=== PATIENT | female | born 1960 | race Two or more races ===

== ENCOUNTER 2021-05-13 00:29 | Inpatient (IN) | payer SELFPAY ==
[~2021-05-13] VITALS: Ht 162.6 cm; Wt 226.8 kg
[2021-05-13] MEDS ORDERED: KETOROLAC 60 MG/2 ML VIAL. IM ONE (01:15)
--- NOTE | 2021-05-13 01:15 | ED.ADGEN ---
General Adult HPI: HPI: Patient is a 60 year old female coming in via EMS for chronic left hip pain. History of bilateral via client partner because patient is Polish-speaking. Patient was discharged the day prior from [facility] after a 3-day stay. Patient was there for the same complaint. History is difficult because patient is elusive with answers and not straightforward. He states that originally she was supposed to go to a skilled rehab but then she decided not to. Has not followed up with her primary care since. Patient denies any new injury or change in her pain. Patient does not get out of bed at home except for transition to a chair that her uses to get her to the restroom. Patient is otherwise bedbound. When asked what patient is hoping for from this ER visit she says she "wants the pain taken away". Was prescribed meloxicam by her primary care provider, and is been taking Tylenol at home Review of Systems: Review of Systems: All other systems within normal limits except for as noted in the HPI Current Medications: Current Medications Medications (Trade) Dose Ordered Sig/Maria E Start Time Stop Time Status Last Admin Dose Admin Ketorolac Tromethamine (Toradol Im) 60 mg 1X ONCE 05/13/21 01:15 05/13/21 01:36 DC 05/13/21 01:32 60 MG Allergies: Allergies: Allergies Coded Allergies Type Severity Reaction Last Updated Verified No Known Drug Allergies 05/13/21 No Physical Exam: PE: Constitutional: Well developed, well nourished, morbidly. [] HENT: Normocephalic, atraumatic, bilateral external ears normal, nose normal. [] Eyes: PERRLA, conjunctiva normal, no discharge. [] Neck: No rigidity, supple, no stridor. [] Cardiovascular: Regular rate and rhythm, brisk cap refill [] Lungs & Thorax: Non labored symmetric respirations, no tachypnea or respiratory distress [] Abdomen: Soft, nondistended. Skin: Warm, dry, no erythema, no rash. [] Back: Unremarkable Extremities: No deformities, range of motion grossly intact, no lower extremity edema. No deformity of hip, pain with palpation. Exam limited by patient's morbid obesity [] Neurologic: Alert and oriented X 3, no focal deficits noted. [] Psychologic: Affect normal, judgement normal, mood normal. [] Current Patient Data: Vital Signs: Vital Signs Date Time Temp Pulse Resp B/P (MAP) Pulse Ox O2 Delivery O2 Flow Rate FiO2 05/13/21 02:30 94 18 167/87 (113) 91 Room Air 05/13/21 01:57 98.0 98.0 EKG: EKG: [] Heart Score: C/O Chest Pain: No Risk Factors: Risk Factors: DM, Current or recent (<one month) smoker, HTN, HLP, family history of CAD, obesity. Risk Scores: Score 0 - 3: 2.5% MACE over next 6 weeks - Discharge Home Score 4 - 6: 20.3% MACE over next 6 weeks - Admit for Clinical Observation Score 7 - 10: 72.7% MACE over next 6 weeks - Early Invasive Strategies Radiology/Procedures: Radiology/Procedures: [facility] [address] [place] [address] IMAGING REPORT Signed PATIENT: MANUELA COVINGTON ACCOUNT: [id number] : 1960 LOCATION: ER AGE: 60 SEX: F EXAM STATUS: REG ER ORD. PHYSICIAN: ARELY TORRES MD REASON: left hip pain PROCEDURE: PELVIS XR PELVIS 1-2V History: Reason: left hip pain / Spl. Instructions: / History: Technique: AP view the pelvis. Comparison: None. Findings: Degraded evaluation due to patient body habitus. No dislocation on AP view. No definite fracture. Moderate bilateral hip DJD. Impression: 1. Degraded evaluation. No definite acute osseous abnormality. If persistent clinical concern, recommend follow-up. 2. Moderate bilateral hip DJD, right greater than left. Electronically signed by: Jonathan Campa DO (05/13/2021 1:41 AM) [facility] DICTATED and SIGNED BY: JONATHAN CAMPA DO DATE: 05/13/21 [id number] [] Course & Med Decision Making: Course & Med Decision Making Discussed with patient we can admit for physical therapy and pain management will getting physical therapy. And that patient would not just get pain medications to go home with due to the risks of severe constipation due to patient being bedbound. Discussed patient she needs to get mobile to help her get around and care for herself. Patient agrees to plan Dragon Disclaimer: Dragon Disclaimer: This electronic medical record was generated, in whole or in part, using a voice recognition dictation system. Departure Departure Impression: Primary Impression: Morbid obesity Additional Impression: Left hip pain Disposition: 09 ADMITTED INPATIENT Admitting Physician: PAMELA Condition: STABLE Referrals: UNKNOWN PCP NAME (PCP) Problem Qualifiers ARELY TORRES MD May 13, 2021 01:15
--- NOTE | 2021-05-13 01:43 | RAD ---
XR PELVIS 1-2V History: Reason: left hip pain / Spl. Instructions: / History: Technique: AP view the pelvis. Comparison: None. Findings: Degraded evaluation due to patient body habitus. No dislocation on AP view. No definite fracture. Mod erate bilateral hip DJD. Impression: 1. Degraded evaluation. No definite acute osseous abnormality. If persistent clinical concern, recom mend follow-up. 2. Moderate bilateral hip DJD, right greater than left. Electronically signed by: Jonathan Chapman DO (05/13/2021 1:41 AM) [facility]
[2021-05-13] MEDS ORDERED: ONDANSETRON PF 4 MG/2 ML VIAL. IVP PRN (02:45)
[2021-05-13] MEDS ORDERED: ACETAMINOPHEN 325 MG TABLET. PO PRN (02:45)
[2021-05-13] MEDS ORDERED: HYDROcodone/APAP 5/325MG 1 TAB TABLET PO ONE (03:00)
[2021-05-13 06:30] LABS: ALBUMIN 2.4 g/dL (3.4-5.0); ALBUMIN/GLOBULIN RATIO 0.5 (1.0-1.7); CALCIUM 9.7 mg/dL (8.5-10.1); CREATININE 0.8 mg/dL (0.6-1.0); GFR 73.2; POTASSIUM 5.5 mmol/L (3.5-5.1); TOTAL BILIRUBIN 0.4 mg/dL (0.2-1.0); TOTAL PROTEIN 7.7 g/dL (6.4-8.2)
[2021-05-13 06:43] LABS: BASO # 0.1 x10^3/uL (0.0-0.2); BASO % 1 % (0-3); EOS % 0 % (0-3); HEMATOCRIT 37.5 % (36.0-47.0); HEMOGLOBIN 11.9 g/dL (12.0-15.5); LYMPH % 8 % (24-48); MEAN CORPUSCULAR HEMOGLOBIN 29 pg (25-35); MEAN CORPUSCULAR HGB CONC 32 g/dL (31-37); MEAN CORPUSCULAR VOLUME 89 fL (79-100); MONO # 0.8 x10^3/uL (0.0-1.1); MONO % 7 % (0-9); NEUT # 9.9 x10^3/uL (1.8-7.7); NEUT % 84 % (31-73); PLATELET COUNT 360 x10^3/uL (140-400); RED CELL DISTRIBUTION WIDTH 15.1 % (11.5-14.5); WHITE BLOOD COUNT 11.9 x10^3/uL (4.0-11.0)
[2021-05-13 07:05] VITALS: BP 148/111
[2021-05-13] MEDS ORDERED: KETOROLAC 30 MG/ML VIAL. IVP PRN (07:15)
--- NOTE | 2021-05-13 07:23 | PDOC1 ---
History and Physical Date of Admission Date of Admission DATE: 05/13/21 TIME: 07:14 Identification/Chief Complaint Chief Complaint Hip pain History of Present Illness History of Present Illness Ms Leos is a 60 year old female w/ PMHx HTN, DM2, super-super obesity (BMI >80) who is coming in via EMS for acute worsening of chronic left hip pain. 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 She was discharged 05/12/21 from [facility] after a 3-day stay. Patient was there for bilateral hip pain, diagnosed with AVN of right hip. Patient denies any new injury or change in her pain. Patient does not get out of bed at home except for transition to a chair that her uses to get her to the restroom. Patient is otherwise bedbound for almost the past 6 years since 2014. She lives with and daughter but family is gone for extended periods at home and patient is unable to transition on her own and unable to complete ADLs independently. He has previously been seen at [facility] and most recently [facility] and was actually discharged 05/12/2021. Labs WBC 11.9, Hb 11.9, platelets 360, NA 131, K5.5, BUN 11, CR 0.8, glucose 120, albumin 2.4, LFTs within normal laboratory limits otherwise Labs from recent hospital stay at [facility] with triglycerides 225 HDL 33 LDL 94 CRP 184.4, sed rate 68 vitamin D 25 hydroxy 14, K5.7, HbA1c 7.4, BASIL negative centromere antibody negative M[employer]ION COMMANDER negative Adames antibody negative dsDNA negative Sjogren's antibodies negative Jennie 1 scleroderma antibody negative hep C negative COVID-19 - 05/18/2021. Microalbumin creatinine ratio greater than 184. Pelvic radiograph with bilateral DJD right greater than left Admitted for further care, unable to care for self or manage pain at home. Past Medical History Cardiovascular: HTN Endocrine: Diabetes Past Surgical History Past Surgical History: No pertinent history Family History Family History: Diabetes, High Cholestrol, Hypertension Social History Smoke: No ALCOHOL: none Drugs: None Current Problem List Problem List Problems Medical Problems: (1) Left hip pain Status: Acute (2) Morbid obesity Status: Acute Current Medications Current Medications Current Medications Ketorolac Tromethamine (Toradol Im) 60 mg 1X ONCE IM Last administered on 05/13/21at 01:32; Start 05/13/21 at 01:15; Stop 05/13/21 at 01:36; Status DC Ondansetron HCl (Zofran) 4 mg PRN Q8HRS PRN IVP NAUSEA/VOMITING 1ST CHOICE; Start 05/13/21 at 02:45; Stop 05/14/21 at 02:44 Acetaminophen (Tylenol) 650 mg PRN Q4HRS PRN PO FEVER > 100.3'F; Start 05/13/21 at 02:45; Stop 05/14/21 at 02:44 Acetaminophen/ Hydrocodone Bitart (Lortab 5/325) 1 tab 1X ONCE PO Last administered on 05/13/21at 03:10; Start 05/13/21 at 03:00; Stop 05/13/21 at 03:01; Status DC Allergies Allergies: Coded Allergies: No Known Drug Allergies (Unverified , 05/13/21) ROS General: YES: Fatigue, Malaise, Appetite; No: Chills, Night Sweats, Other PSYCHOLOGICAL ROS: YES: Depression; No: Anxiety, Behavioral Disorder, Concentration difficultie, Decreased libido, Disorientation, Hallucinations, Hostility, Irritablity, Memory difficulties, Mood Swings, Obsessive thoughts, Physical abuse, Sexual abuse, Sleep disturbances, Suicidal ideation, Other Eyes: No Blurry vision, No Decreased vision, No Double vision, No Dry eyes, No Excessive tearing, No Eye Pain, No Itchy Eyes, No Loss of vision, No Photophobia, No Scotomata, No Uses contacts, No Uses glasses, No Other HEENT: No: Heacaches, Visual Changes, Hearing change, Nasal congestion, Nasal discharge, Oral lesions, Sinus pain, Sore Throat, Epistaxis, Sneezing, Snoring, Tinnitus, Vertigo, Vocal changes, Other ALLERGY AND IMMUNOLOGY: No: Hives, Insect Bite Sensitivity, Itchy/Watery Eyes, Nasal Congestion, Post Nasal Drip, Seasonal Allergies, Other Hematological and Lymphatic: No: Bleeding Problems, Blood Clots, Blood Transfusions, Brusing, Night Sweats, Pallor, Swollen Lymph Nodes, Other ENDOCRINE: No: Breast Changes, Galactorrhea, Hair Pattern Changes, Hot Flashes, Malaise/lethargy, Mood Swings, Palpitations, Polydipsia/polyuria, Skin Changes, Temperature Intolerance, Unexpected Weight Changes, Other Breast: No New/Changing Breast Lumps, No Nipple changes, No Nipple discharge, No Other Respiratory: No: Cough, Hemoptysis, Orthopnea, Pleuritic Pain, Shortness of breath, SOB with excertion, Sputum Changes, Stridor, Tachypnea, Wheezing, Other Cardiovascular: No Chest Pain, No Palpitations, No Orthopnea, No Paroxysmal Noc. Dyspnea, No Edema, No Lt Headedness, No Other Gastrointestinal: No Nausea, No Vomiting, No Abdominal Pain, No Diarrhea, No Constipation, No Melena, No Hematochezia, No Other Genitourinary: No Dysuria, No Frequency, No Incontinence, No Hematuria, No Retention, No Discharge, No Urgency, No Pain, No Flank Pain, No Other, No , No , No , No , No , No , No Musculoskeletal: Yes Joint Pain, Yes Joint Stiffness, Yes Muscle Pain, Yes Muscular Weakness; No Gait Disturbance, No Joint Swelling, No Pain In:, No Swelling In:, No Other Neurological: No Behavorial Changes, No Bowel/Bladder ControlChng, No Confusion, No Dizziness, No Gait Disturbance, No Headaches, No Impaired Coord/balance, No Memory Loss, No Numbness/Tingling, No Seizures, No Speech Problems, No Tremors, No Visual Changes, No Weakness, No Other Skin: Yes Rash; No Dry Skin, No Eczema, No Hair Changes, No Lumps, No Mole Changes, No Mottling, No Nail Changes, No Pruritus, No Skin Lesion Changes, No Other, No Acne Physical Exam General: Alert, Oriented X3, Cooperative, moderate distress HEENT: Atraumatic, PERRLA, EOMI, Mucous membr. moist/pink Lungs: Clear to auscultation, Normal air movement Heart: S1S2, RRR, no thrills, no rubs, no gallops, no murmurs Abdomen: Normal bowel sounds, Soft, No tenderness, No hepatosplenomegaly, No masses Extremities: No clubbing, No cyanosis, Normal pulses, Other Skin: Other (Left posterior thigh ulcer, sacral ulcer) Neuro: Normal tone, Sensation intact, Cranial nerves 3-12 NL, Reflexes 2+ Psych/Mental Status: Mental status NL, Mood NL Vitals Vitals Vital Signs Date Time Temp Pulse Resp B/P (MAP) Pulse Ox O2 Delivery O2 Flow Rate FiO2 05/13/21 07:05 98.1 94 20 148/111 (123) 95 Room Air 98.1 Labs Labs Laboratory Tests Test 05/13/21 03:05 White Blood Count 11.9 x10^3/uL (4.0-11.0) Red Blood Count 4.20 x10^6/uL (3.50-5.40) Hemoglobin 11.9 g/dL (12.0-15.5) Hematocrit 37.5 % (36.0-47.0) Mean Corpuscular Volume 89 fL (79-100) Mean Corpuscular Hemoglobin 29 pg (25-35) Mean Corpuscular Hemoglobin Concent 32 g/dL (31-37) Red Cell Distribution Width 15.1 % (11.5-14.5) Platelet Count 360 x10^3/uL (140-400) Neutrophils (%) (Auto) 84 % (31-73) Lymphocytes (%) (Auto) 8 % (24-48) Monocytes (%) (Auto) 7 % (0-9) Eosinophils (%) (Auto) 0 % (0-3) Basophils (%) (Auto) 1 % (0-3) Neutrophils # (Auto) 9.9 x10^3/uL (1.8-7.7) Lymphocytes # (Auto) 1.0 x10^3/uL (1.0-4.8) Monocytes # (Auto) 0.8 x10^3/uL (0.0-1.1) Eosinophils # (Auto) 0.0 x10^3/uL (0.0-0.7) Basophils # (Auto) 0.1 x10^3/uL (0.0-0.2) Sodium Level 131 mmol/L (136-145) Potassium Level 5.5 mmol/L (3.5-5.1) Chloride Level 97 mmol/L (98-107) Carbon Dioxide Level 24 mmol/L (21-32) Anion Gap 10 (6-14) Blood Urea Nitrogen 11 mg/dL (7-20) Creatinine 0.8 mg/dL (0.6-1.0) Estimated GFR (Cockcroft-Gault) 73.2 BUN/Creatinine Ratio 14 (6-20) Glucose Level 120 mg/dL (70-99) Calcium Level 9.7 mg/dL (8.5-10.1) Total Bilirubin 0.4 mg/dL (0.2-1.0) Aspartate Amino Transf (AST/SGOT) 14 U/L (15-37) Alanine Aminotransferase (ALT/SGPT) 25 U/L (14-59) Alkaline Phosphatase 81 U/L (46-116) Total Protein 7.7 g/dL (6.4-8.2) Albumin 2.4 g/dL (3.4-5.0) Albumin/Globulin Ratio 0.5 (1.0-1.7) Laboratory Tests Test 05/13/21 03:05 White Blood Count 11.9 x10^3/uL (4.0-11.0) Red Blood Count 4.20 x10^6/uL (3.50-5.40) Hemoglobin 11.9 g/dL (12.0-15.5) Hematocrit 37.5 % (36.0-47.0) Mean Corpuscular Volume 89 fL (79-100) Mean Corpuscular Hemoglobin 29 pg (25-35) Mean Corpuscular Hemoglobin Concent 32 g/dL (31-37) Red Cell Distribution Width 15.1 % (11.5-14.5) Platelet Count 360 x10^3/uL (140-400) Neutrophils (%) (Auto) 84 % (31-73) Lymphocytes (%) (Auto) 8 % (24-48) Monocytes (%) (Auto) 7 % (0-9) Eosinophils (%) (Auto) 0 % (0-3) Basophils (%) (Auto) 1 % (0-3) Neutrophils # (Auto) 9.9 x10^3/uL (1.8-7.7) Lymphocytes # (Auto) 1.0 x10^3/uL (1.0-4.8) Monocytes # (Auto) 0.8 x10^3/uL (0.0-1.1) Eosinophils # (Auto) 0.0 x10^3/uL (0.0-0.7) Basophils # (Auto) 0.1 x10^3/uL (0.0-0.2) Sodium Level 131 mmol/L (136-145) Potassium Level 5.5 mmol/L (3.5-5.1) Chloride Level 97 mmol/L (98-107) Carbon Dioxide Level 24 mmol/L (21-32) Anion Gap 10 (6-14) Blood Urea Nitrogen 11 mg/dL (7-20) Creatinine 0.8 mg/dL (0.6-1.0) Estimated GFR (Cockcroft-Gault) 73.2 BUN/Creatinine Ratio 14 (6-20) Glucose Level 120 mg/dL (70-99) Calcium Level 9.7 mg/dL (8.5-10.1) Total Bilirubin 0.4 mg/dL (0.2-1.0) Aspartate Amino Transf (AST/SGOT) 14 U/L (15-37) Alanine Aminotransferase (ALT/SGPT) 25 U/L (14-59) Alkaline Phosphatase 81 U/L (46-116) Total Protein 7.7 g/dL (6.4-8.2) Albumin 2.4 g/dL (3.4-5.0) Albumin/Globulin Ratio 0.5 (1.0-1.7) Images Images Pelvis radiograph: Degraded evaluation due to patient body habitus. No dislocation on AP view. No definite fracture. Moderate bilateral hip DJD. Impression: 1. Degraded evaluation. No definite acute osseous abnormality. If persistent clinical concern, recommend follow-up. 2. Moderate bilateral hip DJD, right greater than left. VTE Prophylaxis Ordered VTE Prophylaxis Devices: No VTE Pharmacological Prophylaxi: Yes Assessment/Plan Assessment/Plan A/P: Intractable left hip pain -had large work-up at [facility] recently for right hip pain. CRP and ESR elevated. D/w orthopedic surgery if this may be due to inflammatory arthritis Right hip AVN - non-ambulatory, no surgical options per recent [facility] stay Hyperkalemia - likely RTA from DM2, will give IV saline, insulin. Monitor trend Hyponatremia - likely hypovolemic from poor access to self care Hyperglycemia - DM2 - A1c 7.7. Added ARB and statin for diabetic nephropathy and cardiac secondary prevention Severe protein calorie malnutrition - Super super morbid obesity (BMI > 80) - high mortality and comorbidity risk Sacral decubitus ulcer - wound care, pressure reducing mattress Left posterior leg ulcer - wound care, pressure reducing mattress Right knee osteoarthritis - non-ambulatory, has moderate pain Left knee osteoarthritis - non-ambulatory, has moderate pain Hypertriglyceridemia - > 150, statin added, may benefit from fish oil HLD - not at goal given DM2 diagnosis, should be < 70mg/dL Vitamin D deficiency - Replace 5000 IU daily Bedbound status - realistic goals of therapy are establishing ADLs with OT and bed exercises with PT Failure to thrive in adult - overall goals of care should be established with family FEN - ADA diet PPX - lovenox FULL CODE Dispo - inpatient. Overall disposition is difficult given recurrent admissions and clearly difficulty with care at home and lack of self care. Surrogate decision-maker is Royal Vora telephone [phone] Justifications for Admission Other Justification VERENICE ZAMORA MD May 13, 2021 07:23
[2021-05-13] MEDS ORDERED: IV NORMAL SALINE 1000ML BAG 1,000 ML IV ONE (08:00)
[2021-05-13 11:22] VITALS: BP 180/68
[2021-05-13] MEDS: DICLOFENAC SODIUM 1% TOPICAL GEL 100GM TUBE. TP SCH ×2 (12:07→20:51)
[2021-05-13] MEDS ORDERED: DEXTROSE 50% 25 GM / 50ML DISP.SYRIN. IV PRN (14:30)
[2021-05-13] MEDS ORDERED: ZINC OXIDE 20% TOPICAL OINTMENT 28GM TUBE. TP PRN (15:00)
[2021-05-13] MEDS ORDERED: VITS A & D/LANOLIN TOPICAL OINTMENT 42GM TUBE. TP PRN (15:00)
[2021-05-13 15:12] VITALS: BP 149/74
--- NOTE | 2021-05-13 15:26 | HP ---
ADMIT DATE: 05/13/2021 REASON FOR CONSULTATION: Left hip pain. BRIEF HISTORY: The patient is a 60-year-old female who is nonambulatory and has been for years. According to the documentation, most of the history is coming from the documentation from treating physician here at the hospital as well as prior examination and admission into [facility] in the last couple days secondary to intractable pain. At this point, there is no significant change in her status since her dismissal from the previous hospital. Continued pain at this point, but not increased or decreased in severity. After reviewing all of the chart and understanding the patient's history, she was evaluated and appropriate treatment was given at that facility for avascular necrosis. Recommendation by the orthopedic department, there was noted to be a nonsurgical due to the patient's current medical status. Also, her current mobility status. Physical exam revealed there to be significant pain this is very limited due to the fact that any type of range of motion is painful at extremes. Although, log rolling does not significantly cause a lot of pain at this point. Neurovascular status is intact. An obvious atrophy of lower extremity musculature bilaterally at this point. IMPRESSION: Avascular necrosis, left hip. PLAN: At this time, I would certainly agree that she is nonambulatory and due to her medical status as well as the amount of obesity, the patient, I believe, is said to be nonambulatory for the remainder of her life. I do not believe that a surgical intervention at this point would necessarily control any of her pain. This would have to be locked prosthesis if that was even performed and I am not sure medically she could undergo that procedure. Therefore, conservative management is currently necessary with pain medications. That would be under the direction of her primary physician at this point. I would be more than glad to see her on an outpatient basis, but this would not change the findings as well as the treatment in the future. Thank you for allowing me to see the patient. BORIS FREITAS: Myranda TID: [id number]
[2021-05-13] MEDS: GABAPENTIN 100 MG CAPSULE. PO SCH ×2 (16:38→20:51)
[2021-05-13] MEDS: CHOLECALCIFEROL (VITAMIN D3) 5,000 UNIT CAPSULE PO SCH (16:38)
[2021-05-13] MEDS: traMADol 50 MG TABLET PO PRN (16:38)
[2021-05-13] MEDS: metFORMIN 500 MG TABLET PO SCH (16:38)
[2021-05-13] MEDS: DULoxetine HCL 30 MG CAPSULE.DR PO SCH (16:39)
[2021-05-13] MEDS: LOSARTAN POTASSIUM 50 MG TABLET. PO SCH (16:39)
[2021-05-13] MEDS: INSULIN LISPRO 300 UNITS/3 ML VIAL. SQ SCH (17:00)
[2021-05-13 19:15] VITALS: BP 122/61
[2021-05-13] MEDS ORDERED: PSYLLIUM HUSK (SUGAR FREE) 1 PKT PACKET PO SCH (21:00)
[2021-05-13] MEDS ORDERED: ATORVASTATIN CALCIUM 10 MG TABLET. PO SCH (21:00)
[2021-05-13 22:46] VITALS: BP 120/73
[2021-05-14 03:05] VITALS: BP 136/73
[2021-05-14 07:00] VITALS: BP 119/63
[2021-05-14] MEDS: INSULIN LISPRO 300 UNITS/3 ML VIAL. SQ SCH ×3 (08:00→17:00)
[2021-05-14 08:17] LABS: CALCIUM 8.9 mg/dL (8.5-10.1); CREATININE 0.6 mg/dL (0.6-1.0); POTASSIUM 4.4 mmol/L (3.5-5.1)
[2021-05-14] MEDS: DULoxetine HCL 30 MG CAPSULE.DR PO SCH (08:36)
[2021-05-14] MEDS: metFORMIN 500 MG TABLET PO SCH ×2 (08:36→17:57)
[2021-05-14] MEDS: CHOLECALCIFEROL (VITAMIN D3) 5,000 UNIT CAPSULE PO SCH (08:36)
[2021-05-14] MEDS: GABAPENTIN 100 MG CAPSULE. PO SCH ×2 (08:36→13:23)
[2021-05-14] MEDS: DICLOFENAC SODIUM 1% TOPICAL GEL 100GM TUBE. TP SCH (08:41)
[2021-05-14] MEDS: traMADol 50 MG TABLET PO PRN (08:45)
[2021-05-14] MEDS: LOSARTAN POTASSIUM 50 MG TABLET. PO SCH (09:00)
[2021-05-14 11:00] VITALS: BP 103/48
--- NOTE | 2021-05-14 12:20 | NUR ---
SW following. Discussed with RN, pt from home with spouse, room air, ada diet. Pt willing to private pay for home health per Lino Walsh ( director). SOFIA discussed with Corinna Cunningham RN - they can do some nathaniel home health with patient, and also send pt a bill and pt can pay what she can. Corinna Cunningham RN will meet with pt. RN notified and Dr. Vega notified. Med Assist following for self pay status. SOFIA will continue to follow. Addendum: 05/14/21 at 1635 by JAGRUTI BLACK Transportation arranged with [facility] for 1999. ASHLEY notified.
[2021-05-14] MEDS ORDERED: METF500T16 PO (12:57)
[2021-05-14] MEDS ORDERED: LISI2.5T12 PO (12:57)
[2021-05-14] MEDS ORDERED: TRAM50TA PO ×2 (12:57→14:46)
[2021-05-14] MEDS ORDERED: CHOL5000 PO (12:57)
[2021-05-14] MEDS ORDERED: DULO30CA2 PO (12:57)
--- NOTE | 2021-05-14 14:50 | SNU/HH DC ---
DISCHARGE WITH HOME HEALTH DISCHARGE INFORMATION: Discharge Date: May 14, 2021 Final Diagnosis: hip pain morbid obesity, BMI 86 unable to transfer Dm2 Problems Medical Problems: (1) Left hip pain Status: Acute (2) Morbid obesity Status: Acute Condition on Discharge: Stable CODE STATUS: Code Status: Full HOME HEALTH: Face to Face: I certify this patient is under my care and that I, had a face to face encounter that meets the physician face to face encounter requirements with this patient on 05/14 Medical Complications: DM [facility] For: Diabetic Care, Medication Management RN For Eval/Treatment: Yes Physical Therapy For: Evalulation/Treatment Occupational Therapy For: Evaluation/Treatment Pt Meets Homebound Status: Other: (cannot transfer) POST DISCHARGE ORDERS: DIET AFTER DISCHARGE: ADA TREATMENT/EQUIPMENT ORDERS: Adaptive Equipment Issued: Long handled sponge, Fisheries Manager CERTIFICATION STATEMENT: Certification Statement: Certification Statement: Based on the above finding, I certify that this patient is confined to the home and needs intermittent intermediate care, physical therapy and/or speech therapy, or continues to need occupational therapy.~ This patient is under my care, and I have initiated the establishment of the plan of care.~ This patient will be followed by myself or a community physician who will periodically review the plan of care. Home Meds Active Scripts Tramadol Hcl (TRAMADOL HCL) 50 Mg Tablet, 50 MG PO PRN BID PRN for PAIN, #24 TAB Prov:ROEL HAGEN MD 05/14/21 Lisinopril (LISINOPRIL) 2.5 Mg Tablet, 1 TAB PO DAILY for Dm2, #30 TAB Prov:ROEL HAGEN MD 05/14/21 Duloxetine Hcl (CYMBALTA) 30 Mg Capsule.dr, 30 MG PO DAILY for pain and mood, #30 CAP Prov:ROEL HAGEN MD 05/14/21 Metformin Hcl (METFORMIN HCL) 500 Mg Tablet, 500 MG PO BIDWMEALS for diabetes, #60 TAB Prov:ROEL HAGEN MD 05/14/21 Cholecalciferol (Vitamin D3) (Vitamin D3 ) 125 Mcg Capsule, 5000 UNIT PO DAILY for replace vitamin D for 30 Days, CAP Prov:ROEL HAGEN MD 05/14/21 ROEL HAGEN MD May 14, 2021 14:49
[2021-05-14 15:00] VITALS: BP 113/60
--- NOTE | 2021-05-14 16:59 | NUR ---
Wound/Ostomy Care Wound Type/Assessment: Wound care consult for left medial thigh open blister after having cellulitis a couple of weeks ago per pt. Pt states that her legs were swollen and red and blister open and were draining on her legs, cellulitis appears to have resolve and pt has a small stable eschar on medial thigh that appears to be healing. No other wounds noted on head to toe skin assessment. Pt is Brazilian speaking, this nurse speaks amharic and recommendations and education were done with pt. Treatment Recommendations/Plan: Cleanse wound and paint with betadine daily, betadine left in room. Education provided: pt educated on wound care and how to take care of wound upon discharge. Offloading surface/device: pillows to offload heels, pt is discharging today per housekeeping staff Recommended Referrals/Tests: n/a Discharge Recommendations for dressings: same as above, pt verbalized understanding regarding how to take care of wound at home and states that daughter can help her if needed.
--- NOTE | 2021-05-14 17:19 | PDOC3 ---
Discharge Summary Visit Information Date of Admission: May 13, 2021 Date of Discharge: May 14, 2021 Final Diagnosis Intractable left hip pain Right hip AVN - non-ambulatory, no surgical options [place] [facility] [place] Hyperkalemia - likely RTA from DM2, will give IV saline, insulin. Monitor trend Hyponatremia - likely hypovolemic from poor access to self care Hyperglycemia - DM2 - A1c 7.7. Added ARB and statin for diabetic nephropathy and cardiac secondary prevention Severe protein calorie malnutrition - Super super morbid obesity (BMI > 80) - high mortality and comorbidity risk Sacral decubitus ulcer - wound care, pressure reducing mattress Left posterior leg ulcer - wound care, pressure reducing mattress Right knee osteoarthritis - non-ambulatory, has moderate pain Left knee osteoarthritis - non-ambulatory, has moderate pain Hypertriglyceridemia - > 150, statin added, may benefit from fish oil HLD - not at goal given DM2 diagnosis, should be < 70mg/dL Vitamin D deficiency - Replace 5000 IU daily Bedbound status - realistic goals of therapy are establishing ADLs with OT and bed exercises with PT Failure to thrive in adult - overall goals of care should be established with ita albright Surrogate decision-maker is Royal Vora telephone [phone] Problems Medical Problems: (1) Left hip pain Status: Acute (2) Morbid obesity Status: Acute Brief Hospital Course Allergies Allergies Coded Allergies Type Severity Reaction Last Updated Verified No Known Drug Allergies 05/13/21 No Vital Signs Vital Signs Date Time Temp Pulse Resp B/P (MAP) Pulse Ox O2 Delivery O2 Flow Rate FiO2 05/14/21 15:00 98.2 98 18 113/60 (77) 92 Room Air 98.2 Lab Results Laboratory Tests Test 05/13/21 03:05 05/13/21 16:58 05/13/21 20:49 05/14/21 06:20 White Blood Count 11.9 x10^3/uL (4.0-11.0) Red Blood Count 4.20 x10^6/uL (3.50-5.40) Hemoglobin 11.9 g/dL (12.0-15.5) Hematocrit 37.5 % (36.0-47.0) Mean Corpuscular Volume 89 fL (79-100) Mean Corpuscular Hemoglobin 29 pg (25-35) Mean Corpuscular Hemoglobin Concent 32 g/dL (31-37) Red Cell Distribution Width 15.1 % (11.5-14.5) Platelet Count 360 x10^3/uL (140-400) Neutrophils (%) (Auto) 84 % (31-73) Lymphocytes (%) (Auto) 8 % (24-48) Monocytes (%) (Auto) 7 % (0-9) Eosinophils (%) (Auto) 0 % (0-3) Basophils (%) (Auto) 1 % (0-3) Neutrophils # (Auto) 9.9 x10^3/uL (1.8-7.7) Lymphocytes # (Auto) 1.0 x10^3/uL (1.0-4.8) Monocytes # (Auto) 0.8 x10^3/uL (0.0-1.1) Eosinophils # (Auto) 0.0 x10^3/uL (0.0-0.7) Basophils # (Auto) 0.1 x10^3/uL (0.0-0.2) Sodium Level 131 mmol/L (136-145) 136 mmol/L (136-145) Potassium Level 5.5 mmol/L (3.5-5.1) 4.4 mmol/L (3.5-5.1) Chloride Level 97 mmol/L (98-107) 101 mmol/L (98-107) Carbon Dioxide Level 24 mmol/L (21-32) 26 mmol/L (21-32) Anion Gap 10 (6-14) 9 (6-14) Blood Urea Nitrogen 11 mg/dL (7-20) 10 mg/dL (7-20) Creatinine 0.8 mg/dL (0.6-1.0) 0.6 mg/dL (0.6-1.0) Estimated GFR (Cockcroft-Gault) 73.2 102.0 BUN/Creatinine Ratio 14 (6-20) Glucose Level 120 mg/dL (70-99) 96 mg/dL (70-99) Calcium Level 9.7 mg/dL (8.5-10.1) 8.9 mg/dL (8.5-10.1) Total Bilirubin 0.4 mg/dL (0.2-1.0) Aspartate Amino Transf (AST/SGOT) 14 U/L (15-37) Alanine Aminotransferase (ALT/SGPT) 25 U/L (14-59) Alkaline Phosphatase 81 U/L (46-116) Total Protein 7.7 g/dL (6.4-8.2) Albumin 2.4 g/dL (3.4-5.0) Albumin/Globulin Ratio 0.5 (1.0-1.7) Glucose (Fingerstick) 137 mg/dL (70-99) 129 mg/dL (70-99) Test 05/14/21 08:06 05/14/21 11:06 05/14/21 15:34 Glucose (Fingerstick) 94 mg/dL (70-99) 105 mg/dL (70-99) 128 mg/dL (70-99) Laboratory Tests Test 05/13/21 20:49 05/14/21 06:20 05/14/21 08:06 05/14/21 11:06 Glucose (Fingerstick) 129 mg/dL (70-99) 94 mg/dL (70-99) 105 mg/dL (70-99) Sodium Level 136 mmol/L (136-145) Potassium Level 4.4 mmol/L (3.5-5.1) Chloride Level 101 mmol/L (98-107) Carbon Dioxide Level 26 mmol/L (21-32) Anion Gap 9 (6-14) Blood Urea Nitrogen 10 mg/dL (7-20) Creatinine 0.6 mg/dL (0.6-1.0) Estimated GFR (Cockcroft-Gault) 102.0 Glucose Level 96 mg/dL (70-99) Calcium Level 8.9 mg/dL (8.5-10.1) Test 05/14/21 15:34 Glucose (Fingerstick) 128 mg/dL (70-99) Brief Hospital Course Ms. Leos is a 60 old female, BMI 86, bed bound, -[place] [facility] [place]. CRP and ESR elevated. D/w orthopedic surgery if this may be due to inflammatory arthritis extensive prior workup at other hospitals pain better organize home health, kunal took as nathaniel case Discharge Information Condition at Discharge: Improved Follow Up: Weeks Disposition/Orders: D/C to Home w/ HH Scheduled Cholecalciferol (Vitamin D3) (Vitamin D3 ) 125 Mcg Capsule, 5,000 UNIT PO DAILY for replace vitamin D for 30 Days Prescribed by: ROEL HAGEN on 05/14/21 1257 Duloxetine Hcl (Cymbalta) 30 Mg Capsule.dr, 30 MG PO DAILY for pain and mood, #30 Prescribed by: ROEL HAGEN on 05/14/21 1257 Lisinopril (Lisinopril) 2.5 Mg Tablet, 1 TAB PO DAILY for Dm2, #30 Prescribed by: ROEL HAGEN on 05/14/21 1257 Metformin Hcl (Metformin Hcl) 500 Mg Tablet, 500 MG PO BIDWMEALS for diabetes, #60 Prescribed by: ROEL HAGEN on 05/14/21 1257 Scheduled PRN Tramadol Hcl (Tramadol Hcl) 50 Mg Tablet, 50 MG PO PRN BID PRN for PAIN, #24 Prescribed by: ROEL HAGEN on 05/14/21 1447 Patient Instructions Patient Instructions pt seen before DC Justicifation of Admission Dx: Justifications for Admission: Justification of Admission Dx: No (obs) ROEL HAGEN MD May 14, 2021 17:19
[2021-05-14 19:00] VITALS: BP 104/54
--- NOTE | 2021-05-14 21:41 | NUR ---
1840,home instructions given to patient by ASHLEY Amador .
--- NOTE | 2021-05-14 21:43 | NUR ---
2000 pt DC to home ,[facility] picked up pt to destination.
== END 2021-05-14 20:00 | disposition home health service (06) | DRG 553 ==
LOC: ER 00:29 → ED HOLD 02:30 → 4 NORTH 03:39
PROVIDERS: ADMIT Internal Medicine; ATTEND Internal Medicine
DX: M87.9 Osteonecrosis, unspecified (principal); E43 Unspecified severe protein-calorie malnutrition; E87.1 Hypo-osmolality and hyponatremia; L97.929 Non-pressure chronic ulcer of unspecified part of left lower leg with unspecified severity; Z68.45 Body mass index [BMI] 70 or greater, adult; E11.65 Type 2 diabetes mellitus with hyperglycemia; E66.01 Morbid (severe) obesity due to excess calories; E78.1 Pure hyperglyceridemia; E86.1 Hypovolemia; I10 Essential (primary) hypertension; L89.159 Pressure ulcer of sacral region, unspecified stage; M16.0 Bilateral primary osteoarthritis of hip; M17.0 Bilateral primary osteoarthritis of knee; R62.7 Adult failure to thrive; Z74.01 Bed confinement status; Z82.49 Family history of ischemic heart disease and other diseases of the circulatory system; Z83.3 Family history of diabetes mellitus; E66.9 Obesity, unspecified; G89.29 Other chronic pain; E87.5 Hyperkalemia; E11.21 Type 2 diabetes mellitus with diabetic nephropathy; Z79.4 Long term (current) use of insulin; E55.9 Vitamin D deficiency, unspecified
CPT/HCPCS: 36415; 72170; 80048; 80053; 82962; 85025; 96372; J1650; J1815; J1885; J7030; 99285-25; G0378